=== PATIENT | male | born 1980 | race Caucasian/White ===

== ENCOUNTER 2024-07-06 07:10 | Emergency (ER) | payer MEDICAID ==
[2024-07-06 07:26] VITALS: RESP 20; TEMP 98; O2SAT 96
[2024-07-06] MEDS ORDERED: DECADRON 10MG INJ. ONE (07:31)
[2024-07-06] MEDS: DECADRON 10MG INJ. IM ONE (07:31)
[2024-07-06] MEDS ORDERED: TORAdol 30 mg Injection ONE (07:31)
[2024-07-06] MEDS: TORAdol 30 mg Injection IM ONE (07:32)
--- NOTE | 2024-07-06 07:44 | ERPHSYRPT ---
- History of Present Illness Time Seen by Provider: 07/06/24 07:40 Source: patient Exam Limitations: no limitations Patient Subjective Stated Complaint: Left elbow pain Triage Nursing Assessment: Patient ambulated back to ED and sat on side of bed. Patient A+O X3. Patient's skin pink, warm and dry. Patient complains of left elbow pain since last night 12/22. Patient states he has a hx of gout and he feels like this is a flare up. Patient states he ate a breakfast sandwich with dimas yesterday and pain started yesterday nathalie. Left elbow noted to be swollen, red and warm. Patient denies injury or trauma. Physician History: Patient is a 43-year-old male with a history of gout presents to our ED for treatment of his elbow pain. Patient reports this pain started last night. No trauma. Patient attributes his pain to a gout flareup. Patient reports he ate a breakfast sandwich with dimas. Patient reports that this typically flares up his gout. No associated fevers no systemic manifestations of his symptomology. No nausea no vomiting patient currently afebrile. Patient is specifically requesting steroid shot. He is adamant that he does not want a x-ray or any other workup for that matter. Patient symptomology is typical of his usual gout flareup. Patient otherwise feels well. He voices no other complaints or concerns at this time. Portions of this note were created with voice recognition technology. There may be grammatical, spelling, punctuation or sound alike errors Timing/Duration: yesterday Severity: moderate Modifying Factors: Improves With: movement Associated Symptoms: denies symptoms Allergies/Adverse Reactions: No Known Drug Allergies Allergy (Unverified 07/06/24 07:18) Hx Influenza Vaccination/Date Given: No Hx Pneumococcal Vaccination/Date Given: No Immunizations Up to Date: Yes Travel Risk - International Travel Have you traveled outside of the country in past 3 weeks: No - Emerging Infectious Disease Are you exhibiting symptoms associated with any current EIDs: No - Review of Systems Constitutional: No Symptoms, No Fever, No Chills Eyes: No Symptoms Ears, Nose, & Throat: No Symptoms Respiratory: No Symptoms, No Cough, No Dyspnea Cardiac: No Symptoms, No Chest Pain, No Edema, No Syncope Abdominal/Gastrointestinal: No Symptoms, No Abdominal Pain, No Nausea, No Vomiting, No Diarrhea Genitourinary Symptoms: No Symptoms, No Dysuria Musculoskeletal: No Symptoms, No Back Pain, No Neck Pain Skin: No Symptoms, No Rash Neurological: No Symptoms, No Dizziness, No Focal Weakness, No Sensory Changes Psychological: No Symptoms Endocrine: No Symptoms Hematologic/Lymphatic: No Symptoms Immunological/Allergic: No Symptoms All Other Systems: Reviewed and Negative - Past Medical History Pertinent Past Medical History: Yes Neurological History: No Pertinent History ENT History: No Pertinent History Cardiac History: Arrhythmia Respiratory History: No Pertinent History Endocrine Medical History: No Pertinent History Musculoskeletal History: No Pertinent History GI Medical History: No Pertinent History History: No Pertinent History Psycho-Social History: No Pertinent History Male Reproductive Disorders: No Pertinent History Other Medical History: Hx of gout - Past Surgical History Past Surgical History: Yes Neuro Surgical History: No Pertinent History Cardiac: No Pertinent History Respiratory: No Pertinent History Gastrointestinal: Hernia Repair Genitourinary: No Pertinent History Musculoskeletal: No Pertinent History Male Surgical History: No Pertinent History - Social History Smoking Status: Never smoker Exposure to second hand smoke: No Drug Use: marijuana - Social Determinants of Health Will the patient participate in the screening: Yes Do you worry about a steady place to live?: No Do you have any problems with any of the following?: No known problems In the past 12 months,have you had to go without utilities?: No Transportation Issues: No Has anyone in your support network made you feel unsafe?: No Have you or anyone in your house had to go without enough: No - Nursing Vital Signs Nursing Vital Signs: Initial Vital Signs Temperature 98.0 F 07/06/24 07:18 Pulse Rate 82 07/06/24 07:18 Respiratory Rate 20 07/06/24 07:18 Blood Pressure 147/92 07/06/24 07:18 O2 Sat by Pulse Oximetry 96 07/06/24 07:18 Pain Scale Pain Intensity 7 - Physical Exam General Appearance: no apparent distress, alert Eye Exam: PERRL/EOMI, eyes nml inspection Ears, Nose, Throat Exam: normal ENT inspection Neck Exam: normal inspection, full range of motion Respiratory Exam: normal breath sounds, airway intact, No respiratory distress Cardiovascular Exam: regular rate/rhythm, normal peripheral pulses Gastrointestinal/Abdomen Exam: No tenderness, No mass Back Exam: normal inspection, normal range of motion, No CVA tenderness, No vertebral tenderness Extremity Exam: normal inspection, normal range of motion, other (Limited range of motion secondary to pain. The involved left upper extremity is otherwise neurovascular tact distally compartments are soft cap refill less than 2 seconds. Overlying soft tissue intact. No signs of cellulitis or infection.) Neurologic Exam: alert, oriented x 3, cooperative, normal mood/affect, sensation nml, No motor deficits Skin Exam: normal color, warm, dry, No rash Lymphatic Exam: No adenopathy SpO2 Interpretation: normal SpO2: 96 O2 Delivery: Room Air - Course Nursing assessment & vital signs reviewed: Yes Ordered Tests: Medication Summary Discontinued Medications Generic Name Dose Route Start Last Admin Trade Name Mynor PRN Reason Stop Dose Admin Dexamethasone Sodium Phosphate 8 mg 07/06/24 07:29 07/06/24 07:31 Dexamethasone Sod Phosphate 10 Mg/Ml IM 07/06/24 07:30 8 mg STAT ONE Administration Dexamethasone Sodium Phosphate Confirm 07/06/24 07:31 Dexamethasone Sod Phosphate 10 Mg/Ml Administered 07/06/24 07:32 Dose 10 mg .ROUTE .STK-MED ONE Ketorolac Tromethamine 30 mg 07/06/24 07:29 07/06/24 07:32 Ketorolac Tromethamine 30 Mg/Ml Inj IM 07/06/24 07:30 30 mg STAT ONE Administration Ketorolac Tromethamine Confirm 07/06/24 07:31 Ketorolac Tromethamine 30 Mg/Ml Inj Administered 07/06/24 07:32 Dose 30 mg .ROUTE .STK-MED ONE - Progress Progress: improved Progress Note: 43-year-old male presents to our ED for a self diagnosed gout flareup. Patient's diagnosis based on his history and consuming a dimas breakfast sandwich which he believes triggered the symptomology. Patient declined a workup. Risks of declining workup discussed. Patient patient accepts the risks we will follow through with patient's request. Patient declined elbow x-ray as well. However he is agreeable to a left upper extremity sling. Per patient's request steroid injection administered. We provided a Toradol shot as well. Prescription for Toradol forwarded to patient's pharmacy. Patient agrees to follow-up with his primary care doctor within 48 hours for reevaluation. He voices no other complaints or concerns at this time. Portions of this note were created with voice recognition technology. There may be grammatical, spelling, punctuation or sound alike errors Complexity of problem addressed is moderate acute complicated no critical care time. Complex of data reviewed and analyzed is none. Diagnostic impression made based on history physical and patient's assertion. Risk of complication and or risk of morbidity/mortality of patient management is moderate. Patient received a prescription for Toradol. Patient received an IM dose of Decadron and Toradol. Vital stable. Time spent to discharge patient is approximately 15 minutes. Plan of care established for shared decision making. No social determinants of health present to impede follow-up. Portions of this note were created with voice recognition technology. There may be grammatical, spelling, punctuation or sound alike errors 07/06/24 08:01 Counseled pt/family regarding: diagnosis, need for follow-up - Departure Departure Disposition: Home Clinical Impression: Gout attack Condition: Stable Critical Care Time: No Instructions: Gout ED, Low-purine diet Additional Instructions: Discharge/Care Plan BRANTRAFIQ SCHNEIDER was seen on 07/06/24 in the Emergency Room. The patient was counseled regarding Diagnosis,Lab results, Imaging studies, need for follow up and when to return to the Emergency Room. Prescriptions given: Discharge Note I have spoken with the patient and/or caregivers. I have explained the patient's condition, diagnosis and treatment plan based on the information available to me at this time. I have answered the patient's and/or caregiver's questions and addressed any concerns. The patient and/or caregivers have as good understanding of the patient's diagnosis, condition and treatment plan as can be expected at this point. The vital signs have been stable. The patient's condition is stable and appropriate for discharge from the emergency department. The patient will pursue further outpatient evaluation with the primary care physician or other designated or consulting physician as outlined in the discharge instructions. The patient and/or caregivers are agreeable to this plan of care and follow-up instructions have been explained in detail. The patient and/or caregivers have received these instruction. The patient/and or caregivers are aware that any significant change in condition or worsening of symptoms should prompt an immediate return to this or the closest emergency department or call 911. Prescriptions: Ketorolac Trometh 10 mg Tab [TORAdol 10 MG TABLET] 10 mg PO TID 5 Days #15 tablet
[2024-07-06 08:01] VITALS: BP 145/70; PULSE 79
== END 2024-07-06 08:00 | disposition home or self-care (01) ==
LOC: ED 07:10
DX: M10.9 Gout, unspecified (principal); M25.522 Pain in left elbow; Z79.899 Other long term (current) drug therapy
CPT/HCPCS: 96372; 99283; J1100; J1885

== ENCOUNTER 2024-07-12 05:06 | Emergency (ER) | payer MEDICAID ==
[2024-07-12 05:19] VITALS: TEMP 98.3
[2024-07-12] MEDS: solu-MEDROL 125 MG, Sterile H2O 10 ml 10 ML IV ONE (05:37)
[2024-07-12] MEDS ORDERED: Sterile H2O 10 ml IJ ONE (05:39)
[2024-07-12] MEDS ORDERED: solu-MEDROL ONE (05:39)
[2024-07-12] MEDS: solu-MEDROL 125 MG, Sterile H2O 10 ml 10 ML IM ONE (05:41)
[2024-07-12] MEDS ORDERED: TORAdol 30 mg Injection ONE (05:42)
[2024-07-12] MEDS: TORAdol 30 mg Injection IM ONE (05:44)
--- NOTE | 2024-07-12 05:44 | ERPHSYRPT ---
- History of Present Illness Time Seen by Provider: 07/12/24 05:30 Source: patient Exam Limitations: no limitations Patient Subjective Stated Complaint: I have gout in my elbow. I was in here the other day for gout in my left elbow. And I ate ham and beans and now I have it in my Rt elbow. Triage Nursing Assessment: Pt ambulated into ER without diff. Pt c/o rt elbow pain, states, "I have gout". Pt came in wearing sling to rt elbow. Pt is loud, angry, irritable and demanding steroids that taper because that's the only thing that helps him. Pt informed us that he was here a few days ago for the same thing with the left elbow and states, "the left elbow is better but still sore". Dr. Shannon saw this pt for the left elbow and is here again tonight to see pt regarding rt elbow. Pt is guarding rt elbow, holding it close to his body. Rt elbow is normal color for pt's skin, Slight edema noted to left elbow and minimally warm, but not excessively hot or anything. Physician History: 43-year-old male history of gout presents to our ED for treatment of a right gout flareup. Patient was in our ED 6 days earlier with a gout flareup of the left elbow. Patient requested intramuscular steroid injection for which he received. Patient received Decadron. Patient is here today with a gout flareup of the right elbow per patient. Patient attributed his last gout flareup to dimas. Patient's left elbow gout flareup has essentially resolved. Patient now states that his right elbow is experiencing a gout flareup due to eating beans and ham the previous day. Patient demanding a steroid injection with a taper. No interval trauma. Patient declined an x-ray. No fever. No nausea no vomiting no rash. No upper extremity numbness tingling or weakness. Symptoms are mild to moderate in intensity. Pain reproduced with movement and palpation. Patient voices no other complaints or concerns at this time. Portions of this note were created with voice recognition technology. There may be grammatical, spelling, punctuation or sound alike errors Timing/Duration: today Severity: moderate Associated Symptoms: denies symptoms Allergies/Adverse Reactions: No Known Drug Allergies Allergy (Unverified 07/06/24 07:18) Hx Tetanus, Diphtheria Vaccination/Date Given: Yes Hx Influenza Vaccination/Date Given: No Hx Pneumococcal Vaccination/Date Given: No Travel Risk - International Travel Have you traveled outside of the country in past 3 weeks: No - Emerging Infectious Disease Are you exhibiting symptoms associated with any current EIDs: No - Review of Systems Constitutional: No Symptoms, No Fever, No Chills Eyes: No Symptoms Ears, Nose, & Throat: No Symptoms Respiratory: No Symptoms, No Cough, No Dyspnea Cardiac: No Symptoms, No Chest Pain, No Edema, No Syncope Abdominal/Gastrointestinal: No Symptoms, No Abdominal Pain, No Nausea, No Vomiting, No Diarrhea Genitourinary Symptoms: No Symptoms, No Dysuria Musculoskeletal: No Symptoms, No Back Pain, No Neck Pain Skin: No Symptoms, No Rash Neurological: No Symptoms, No Dizziness, No Focal Weakness, No Sensory Changes Psychological: No Symptoms Endocrine: No Symptoms Hematologic/Lymphatic: No Symptoms Immunological/Allergic: No Symptoms All Other Systems: Reviewed and Negative - Past Medical History Pertinent Past Medical History: Yes Neurological History: No Pertinent History ENT History: No Pertinent History Cardiac History: Arrhythmia Respiratory History: No Pertinent History Endocrine Medical History: No Pertinent History Musculoskeletal History: No Pertinent History GI Medical History: No Pertinent History History: No Pertinent History Psycho-Social History: No Pertinent History Male Reproductive Disorders: No Pertinent History Other Medical History: Hx of gout. cardioverted - Past Surgical History Past Surgical History: Yes Neuro Surgical History: No Pertinent History Cardiac: No Pertinent History Respiratory: No Pertinent History Gastrointestinal: Hernia Repair Genitourinary: No Pertinent History Musculoskeletal: No Pertinent History Male Surgical History: No Pertinent History - Social History Smoking Status: Former smoker How long have you smoked: 2023 Exposure to second hand smoke: No Drug Use: marijuana - Social Determinants of Health Will the patient participate in the screening: Yes Do you worry about a steady place to live?: No Do you have any problems with any of the following?: No known problems In the past 12 months,have you had to go without utilities?: No Transportation Issues: No Has anyone in your support network made you feel unsafe?: No Have you or anyone in your house had to go without enough: No - Nursing Vital Signs Nursing Vital Signs: Initial Vital Signs Temperature 98.3 F 07/12/24 05:15 Pulse Rate 50 L 07/12/24 05:15 Respiratory Rate 24 07/12/24 05:15 Blood Pressure 160/114 07/12/24 05:15 O2 Sat by Pulse Oximetry 95 07/12/24 05:15 Pain Scale Pain Intensity [Right Elbow] 10 Pain Intensity 10 - Physical Exam General Appearance: no apparent distress, alert Eye Exam: PERRL/EOMI, eyes nml inspection Respiratory Exam: normal breath sounds, airway intact, No respiratory distress Cardiovascular Exam: regular rate/rhythm, normal peripheral pulses Gastrointestinal/Abdomen Exam: No tenderness, No mass Back Exam: normal inspection, normal range of motion, No CVA tenderness, No vertebral tenderness Extremity Exam: normal inspection, normal range of motion, other (Limited range of motion right elbow secondary to pain. No signs of trauma no bruising. The right elbow is generating some heat. No open or draining lesions. No cellulitis no erythema. No lymphangitis. The involved extremities neurovascular tact distally compartments are soft cap refill less th) Neurologic Exam: alert, oriented x 3, cooperative, normal mood/affect, nml station & gait, sensation nml, No motor deficits Skin Exam: normal color, warm, dry, No rash Lymphatic Exam: No adenopathy SpO2 Interpretation: normal SpO2: 95 O2 Delivery: Room Air - Course Nursing assessment & vital signs reviewed: Yes Ordered Tests: Medication Summary Discontinued Medications Generic Name Dose Route Start Last Admin Trade Name Freq PRN Reason Stop Dose Admin Methylprednisolone Sodium 0 mg 07/12/24 05:36 07/12/24 05:37 Succinate 125 mg/ Sterile IV 07/12/24 05:37 Not Given Water 10 ml STAT ONE Methylprednisolone Sodium 0 mg 07/12/24 05:36 07/12/24 05:41 Succinate 125 mg/ Sterile IM 07/12/24 05:37 60 mg Water 10 ml STAT ONE Administration Ketorolac Tromethamine 60 mg 07/12/24 05:40 07/12/24 05:44 Ketorolac Tromethamine 30 Mg/Ml Inj IM 07/12/24 05:41 60 mg STAT ONE Administration Ketorolac Tromethamine Confirm 07/12/24 05:42 Ketorolac Tromethamine 30 Mg/Ml Inj Administered 07/12/24 05:43 Dose 60 mg .ROUTE .STK-MED ONE Methylprednisolone Sodium Succinate Confirm 07/12/24 05:39 Methylprednis Sod Succ 125 Mg/2 Ml Vial Administered 07/12/24 05:40 Dose 125 mg .ROUTE .STK-MED ONE Sterile Water Confirm 07/12/24 05:39 Water For Injection,Sterile 10 Ml Vial Administered 07/12/24 05:40 Dose 10 ml IJ .STK-MED ONE - Progress Progress: improved Progress Note: 43-year-old male presents to our ED for treatment of a gout flareup. Patient was in our ED last week with a flareup of his left elbow after eating dimas. Patient had beans and ham which she feels triggered his right elbow flareup. No fever no trauma. Patient requesting a steroid injection with a steroid taper. Patient received IM Solu-Medrol. Patient received IM Toradol. Patient received a prescription for colchicine and tapering prednisone. Patient wearing a upper extremity sling. Upon presentation patient appeared to be angry. Patient seems to be more calm states he is ready for discharge. Patient refused an x-ray. He refused any workup other than receiving his steroids injection with a taper. Portions of this note were created with voice recognition technology. There may be grammatical, spelling, punctuation or sound alike errors Complexity of problem addressed is moderate acute complicated no critical care time. Complex of data reviewed and analyzed none. No specialized testing ordered per patient's request. Diagnosis made based on history and physical exam. Risk of complication and or risk of morbidity/mortality of patient management is moderate. Patient received prescription for colchicine and prednisone taper. Vital stable. Time spent to discharge patient is approximately 15 minutes. Plan of care established for shared decision making. No social determinants of health present to impede follow-up. Portions of this note were created with voice recognition technology. There may be grammatical, spelling, punctuation or sound alike errors 07/12/24 06:08 Counseled pt/family regarding: diagnosis, need for follow-up - Departure Departure Disposition: Home Clinical Impression: Gout attack Condition: Stable Critical Care Time: No Referrals: DOCTOR,NO FAMILY [Primary Care Provider] - Follow up/PCP as directed RONNELL KAY MD [ACTIVE STAFF] - Follow up/PCP as directed Instructions: Gout ED, Low-purine diet Additional Instructions: Discharge/Care Plan BRANTRAFIQ SCHNEIDER was seen on 07/12/24 in the Emergency Room. The patient was counseled regarding Diagnosis,Lab results, Imaging studies, need for follow up and when to return to the Emergency Room. Prescriptions given: Discharge Note I have spoken with the patient and/or caregivers. I have explained the patient's condition, diagnosis and treatment plan based on the information available to me at this time. I have answered the patient's and/or caregiver's questions and addressed any concerns. The patient and/or caregivers have as good understanding of the patient's diagnosis, condition and treatment plan as can be expected at this point. The vital signs have been stable. The patient's condition is stable and appropriate for discharge from the emergency department. The patient will pursue further outpatient evaluation with the primary care physician or other designated or consulting physician as outlined in the discharge instructions. The patient and/or caregivers are agreeable to this plan of care and follow-up instructions have been explained in detail. The patient and/or caregivers have received these instruction. The patient/and or caregivers are aware that any significant change in condition or worsening of symptoms should prompt an immediate return to this or the closest emergency department or call 911. Prescriptions: Colchicine 0.6 mg PO DAILY #5 cap Prednisone 5 mg [Deltasone 5 mg] 5 mg PO DAILY 4 Days #10 tablet
[2024-07-12 05:49] VITALS: BP 143/117; PULSE 95; RESP 22
[2024-07-12 05:51] VITALS: O2SAT 95
== END 2024-07-12 06:01 | disposition home or self-care (01) ==
LOC: ED 05:06
DX: M10.9 Gout, unspecified (principal); M25.522 Pain in left elbow; Z79.52 Long term (current) use of systemic steroids; Z79.899 Other long term (current) drug therapy
CPT/HCPCS: 96372; 99283; 99284; J1885; J2919

== ENCOUNTER 2024-09-03 18:47 | Emergency (ER) | payer MEDICAID ==
[2024-09-03 19:55] VITALS: PULSE 91; RESP 18; TEMP 98.5
[2024-09-03 20:08] VITALS: BP 154/81; O2SAT 94
== END 2024-09-03 20:03 | disposition left against medical advice (07) ==
LOC: ED 18:47
DX: R10.2 Pelvic and perineal pain (principal)
CPT/HCPCS: 99281

== ENCOUNTER 2024-10-15 12:35 | Emergency (ER) | payer MEDICAID | END 2024-10-15 13:21 | disposition left against medical advice (07) | LOC: ED 12:35 | DX: Z53.21 Procedure and treatment not carried out due to patient leaving prior to being seen by health care provider (principal) ==